=== PATIENT | female | born 1970 | race Hispanic/Latino ===

== ENCOUNTER 2019-08-18 16:31 | Emergency (ER) | payer OTHER ==
[2019-08-18 17:24] LABS: RAPID GROUP A STREP NEGATIVE (NEGATIVE)
[2019-08-18] MEDS ORDERED: ONDANSETRON ODT 4 MG TAB ONE (17:46)
== END 2019-08-18 17:57 | disposition home or self-care (01) ==
LOC: EDH 16:31
DX: J11.1 Influenza due to unidentified influenza virus with other respiratory manifestations (principal); R05 Cough; Z90.49 Acquired absence of other specified parts of digestive tract
CPT/HCPCS: 87804; 87880

== ENCOUNTER 2019-11-27 12:31 | Emergency (ER) | payer SELFPAY ==
[2019-11-27 13:51] LABS: RAPID GROUP A STREP POSITIVE (NEGATIVE)
== END 2019-11-27 14:26 | disposition home or self-care (01) ==
LOC: EDH 12:31
DX: A08.4 Viral intestinal infection, unspecified (principal); J02.0 Streptococcal pharyngitis; Z90.49 Acquired absence of other specified parts of digestive tract
CPT/HCPCS: 87804; 87880

== ENCOUNTER 2022-02-11 21:24 | Emergency (ER) | payer OTHER ==
[~2022-02-11] VITALS: Ht 162.6 cm; Wt 68.0 kg
[2022-02-11 21:25] VITALS: BP 154/87
[2022-02-11] MEDS ORDERED: FEXO1TAB8 PO (21:55)
== END 2022-02-11 22:01 | disposition home or self-care (01) ==
LOC: EDH 21:24
DX: H83.8X3 Other specified diseases of inner ear, bilateral (principal)
CPT/HCPCS: 99282

== ENCOUNTER 2022-06-10 05:52 | Emergency (ER) | payer OTHER ==
[~2022-06-10] VITALS: Ht 162.6 cm; Wt 82.1 kg
[~2022-06-10 05:52] MED LIST: FEXO1TAB8 PO
[2022-06-10 06:36] VITALS: BP 129/78
== END 2022-06-10 06:42 | disposition home or self-care (01) ==
LOC: EDH 05:52
DX: F10.129 Alcohol abuse with intoxication, unspecified (principal); F41.9 Anxiety disorder, unspecified; F32.A Depression, unspecified; F20.9 Schizophrenia, unspecified; Z98.890 Other specified postprocedural states; Z79.899 Other long term (current) drug therapy; Y90.9 Presence of alcohol in blood, level not specified

== ENCOUNTER 2023-09-02 22:57 | Emergency (ER) | payer OTHER ==
[~2023-09-02] VITALS: Ht 162.6 cm; Wt 79.4 kg
[2023-09-02 23:01] VITALS: BP 106/79; PULSE 103; RESP 20
[2023-09-02] MEDS: ACETAMINOPHEN 500 MG TABLET PO ONE (23:32)
[2023-09-02 23:56] LABS: RAPID GROUP A STREP negative (NEGATIVE)
[2023-09-03 00:03] VITALS: TEMP 99
[2023-09-03 00:03] LABS: SARS-CoV-2, RNA, NAAT NEGATIVE SARS CoV-2 (NEGATIVE)
[2023-09-03 00:07] LABS: INFLUENZA TYPE A Negative For Type A (NEGATIVE); INFLUENZA TYPE B Negative For Type B (NEGATIVE)
[2023-09-03 00:46] LABS: APPEARANCE,URINE CLOUDY (CLEAR); BILIRUBIN,URINE NEGATIVE (NEGATIVE); COLOR,URINE YELLOW (YELLOW); GLUCOSE, URINE (UA) NEGATIVE (NEGATIVE); KETONES,URINE NEGATIVE (NEGATIVE); LEUKOCYTE ESTERASE ,URINE NEGATIVE Leu/uL (NEGATIVE); NITRATE,URINE NEGATIVE (NEGATIVE); OCCULT BLOOD,URINE NEGATIVE (NEGATIVE); PH,URINE 6.5 (5.0-8.0); PROTEIN,URINE 100 mg/dL (NEGATIVE); UROBILINOGEN,URINE 0.2 mg/dL (0.2-1.0)
[2023-09-03 00:55] LABS: ADD UA MICROSCOPIC YES
[2023-09-03 00:59] LABS: BACTERIA,URINE RARE /HPF (None Seen); MUCUS,URINE RARE LPF (None Seen); SQUAMOUS EPITHELIAL CELL,UR MANY /HPF (0-2)
[2023-09-03] MEDS ORDERED: AZIT250T9 PO (01:01)
[2023-09-03] MEDS ORDERED: BENZ200C53 PO (01:01)
[2023-09-03] MEDS ORDERED: D-ME118S47 PO (01:01)
[2023-09-03] MEDS ORDERED: ALBU90AE2 IH (01:01)
== END 2023-09-03 01:25 | disposition home or self-care (01) ==
LOC: EDH 22:57
DX: J06.9 Acute upper respiratory infection, unspecified (principal); F41.9 Anxiety disorder, unspecified; Z20.822 Contact with and (suspected) exposure to COVID-19; Z98.890 Other specified postprocedural states
CPT/HCPCS: 71045; 81001; 87635; 87804; 87880

== ENCOUNTER 2024-01-30 12:26 | Emergency (ER) | payer OTHER ==
[~2024-01-30] VITALS: Ht 165.1 cm; Wt 83.0 kg
[~2024-01-30 12:26] MED LIST changes: +ALBU90AE3 IH; +AZIT250T9 PO; +BENZ200C53 PO; +BROM118S48 PO
[2024-01-30 13:16] LABS: APPEARANCE,URINE CLEAR (CLEAR); BILIRUBIN,URINE NEGATIVE (NEGATIVE); COLOR,URINE COLORLESS (YELLOW); GLUCOSE, URINE (UA) NEGATIVE (NEGATIVE); KETONES,URINE NEGATIVE (NEGATIVE); LEUKOCYTE ESTERASE ,URINE NEGATIVE Leu/uL (NEGATIVE); NITRATE,URINE NEGATIVE (NEGATIVE); OCCULT BLOOD,URINE NEGATIVE (NEGATIVE); PH,URINE 5.5 (5.0-8.0); PROTEIN,URINE NEGATIVE (NEGATIVE); UROBILINOGEN,URINE 0.2 mg/dL (0.2-1.0)
[2024-01-30 13:25] LABS: AMPHET/METH SCREEN,URINE NEGATIVE (NEGATIVE); BARBITURATE SCREEN, URINE NEGATIVE (NEGATIVE); BENZODIAZEPINES SCREEN,URINE NEGATIVE (NEGATIVE); CANNABINOID SCREEN,URINE NEGATIVE (NEGATIVE); COCAINE SCREEN,URINE POSITIVE (NEGATIVE); OPIATE SCREEN,URINE NEGATIVE (NEGATIVE); PHENCYCLIDINE SCREEN,URINE NEGATIVE (NEGATIVE)
[2024-01-30 13:31] LABS: ADD UA MICROSCOPIC NO
[2024-01-30] MEDS: ONDANSETRON ODT 4MG TAB SL ONE (14:01)
[2024-01-30] MEDS ORDERED: HYDR50CA50 PO (14:16)
[2024-01-30 14:30] VITALS: BP 136/67; PULSE 88; RESP 18; O2SAT 99
== END 2024-01-30 14:30 | disposition home or self-care (01) ==
LOC: EDH 12:26
DX: F41.0 Panic disorder [episodic paroxysmal anxiety] (principal); F14.90 Cocaine use, unspecified, uncomplicated; F32.A Depression, unspecified; Z79.899 Other long term (current) drug therapy; Z98.890 Other specified postprocedural states
CPT/HCPCS: 80305; 81003